=== PATIENT | female | born 1965 | race Caucasian/White ===

== ENCOUNTER 2020-05-04 14:14 | Outpatient (CLI) | payer OTHER, SELFPAY ==
--- NOTE | ~2020-05-04 | MR_ITS ---
EXAMINATION: MR cervical spine wo con DATE: 05/04/2020 15:16 INDICATION: Cervical disc disorder, unspecified. Neck pain. TECHNIQUE: Magnetic resonance imaging (MRI) of the cervical spine was performed without intravenous c ontrast. Sequences included sagittal T2-weighted FSE, sagittal STIR FSE, sagittal T1-weighted FSE, ax ial MERGE, and axial T2-weighted FSE. COMPARISON: None FINDINGS: There is 5 degrees levocurvature of cervical spine. Vertebral body heights are normal. Ther e are changes of anterior fusion procedure from C5 to C7 with discectomies, interbody bone graft, and anterior plate and screws. There is moderately decreased disc height at C4-C5. The spinal cord signa l intensity is normal. The following disc levels are specifically discussed: C2-C3: The disc does not extend beyond the endplate margin. There is no uncovertebral joint osteoarth ritis. There is mild left facet joint osteoarthritis. There is no neural foraminal stenosis. There is no central canal stenosis. C3-C4: There is a central protrusion. There is mild bilateral uncovertebral joint osteoarthritis. The re is no facet joint osteoarthritis. There is mild bilateral neural foraminal stenosis. There is no c entral canal stenosis. C4-C5: The disc is bulging. There is mild bilateral uncovertebral joint osteoarthritis. There is mild bilateral facet joint osteoarthritis. There is mild bilateral neural foraminal stenosis. There is mi ld central canal stenosis. C5-C6: There is no uncovertebral joint hypertrophy. There is no facet joint hypertrophy. There is no neural foraminal stenosis. There is no central canal stenosis. C6-C7: There is no uncovertebral joint hypertrophy. There is no facet joint hypertrophy. There is no neural foraminal stenosis. There is no central canal stenosis. C7-T1: The disc does not extend beyond the endplate margin. There is no uncovertebral joint osteoarth ritis. There is severe right and mild left facet joint osteoarthritis. There is mild right neural for aminal stenosis. There is no central canal stenosis. IMPRESSION: 1. Mild cervical spondylosis. 2. Anterior fusion procedure from C5 to C7. Reviewed, dictated and finalized at location A.
== END 2020-05-04 14:15 | disposition home or self-care (01) ==
PROVIDERS: PCP Family Medicine; Visit Provider Family Medicine
DX: M50.90 Cervical disc disorder, unspecified, unspecified cervical region (principal); M47.892 Other spondylosis, cervical region; Z98.0 Intestinal bypass and anastomosis status
CPT/HCPCS: 72141

== ENCOUNTER 2020-09-02 08:13 | Outpatient (NON) | payer OTHER, SELFPAY ==
[2020-09-02 17:37] LABS: SARS-CoV-2 RNA PCR Negative
== END 2020-09-02 08:14 ==
PROVIDERS: PCP Family Medicine; Visit Provider Family Medicine
DX: R68.89 Other general symptoms and signs (principal); Z20.828 Contact with and (suspected) exposure to other viral communicable diseases
CPT/HCPCS: 87635; C9803; U0003

== ENCOUNTER 2023-01-27 15:43 | Outpatient (CLI) | payer OTHER, SELFPAY ==
--- NOTE | ~2023-01-27 | CT_ITS ---
EXAMINATION: CT sinus wo con DATE: 01/27/2023 15:59 INDICATION: Chronic sinusitis. TECHNIQUE: Computed tomography (CT) of the paranasal sinuses was performed without intravenous contra st. Iterative reconstruction technique was employed. The dose-length product was 297.72 mGy-cm. COMPARISON: None FINDINGS: There is extensive mucosal thickening in right frontal sinus and mild mucosal thickening in left frontal sinus. There is extensive mucosal thickening in the bilateral anterior and posterior et hmoid sinuses and sphenoid sinuses. There is mild mucosal thickening in the maxillary sinuses. There are changes of bilateral uncinectomies and ethmoidectomies. The nasal septum is at midline. The ostio meatal units are patent. There are multiple carious lesions in the teeth. IMPRESSION: 1. Mucosal thickening in the paranasal sinuses. 2. Dental disease. Reviewed, dictated and finalized at location A.
== END 2023-01-27 15:44 | disposition home or self-care (01) ==
PROVIDERS: PCP Family Medicine; Visit Provider Family Medicine
DX: J32.1 Chronic frontal sinusitis (principal); K08.9 Disorder of teeth and supporting structures, unspecified
CPT/HCPCS: 70486

== ENCOUNTER 2023-02-12 13:38 | Outpatient (CLI) | payer OTHER, SELFPAY ==
--- NOTE | ~2023-02-12 | CT_ITS ---
EXAMINATION:CT diagnostic chest wo con DATE: 02/12/2023 13:56 INDICATION: Lung fibrosis. Chronic obstructive pulmonary disease. TECHNIQUE: Computed tomography (CT) of the chest was performed without intravenous contrast. Automate d exposure control and iterative reconstruction technique were employed. The dose-length product (DLP ) was 334.63 mGy-cm. COMPARISON: Chest CT 03/16/2014 FINDINGS: There is mild emphysema. There are airspace opacities with volume loss and air bronchograms in lateral segment right middle lobe. There is mild bronchiectasis in right middle lobe. There is mi ld atelectasis in lingula. There are mild groundglass opacities in the lungs with an inferior predomi nance. No honeycombing. No pleural effusion. The heart size is normal. No pericardial effusion. There are changes of anterior fusion procedure in cervical spine. IMPRESSION: 1. Mild emphysema and mild chronic lung disease. Reviewed, dictated and finalized at location A.
--- NOTE | 2023-02-16 11:38 | WPDSIXMINUTE ---
Six Minute Walk Procedure Procedure Performed Pulmonary Stress Test (6 min walk) Six Minute Walk Six Minute Walk: This is a 6 minute walk test. The test was performed and interpreted in accordance with the 2014 ERS/ATS task force guidelines. Findings: The patient's resting room air oxygen saturation measured by pulse oximetry was 94% and heart rate was 95 bpm. Patient ambulated for 305 meters and oxygen saturation remained 90 to 96%. Heart rate at the end of the study was 113 bpm. The patient did not qualify for supplemental oxygen at rest or with ambulation. There are no prior studies for comparison.
--- NOTE | 2023-02-16 11:40 | WPDPFTINT ---
PFT Procedure Performed PFT Procedure Performed Spirometry with Pre/Post Bronchodilator Plethysmography (Lung Vol) Diffusing Cap (DLCO) Flow Vol Loop PFT Interpretation This is a pulmonary function test with pre and post-bronchodilator spirometry, plethysmography and diffusing capacity. The test was performed and results interpreted in accordance with the 2019 and 2005 ATS/ERS Task Force guidelines respectively using the Global Lung Function Initiative-2012 reference equations. Patient demonstrated good effort and cooperation. Reproducibility criteria were met. The quality of the pre bronchodilator spirometry maneuver was Grade A and post bronchodilator spirometry maneuver was Grade A. Findings: Spirometry: The contour the inspiratory and expiratory flow tracing are normal. The pre bronchodilator FVC is 2.56 L, 90% predicted. The pre bronchodilator FEV1 is 2.09 L, 93% predicted. The pre bronchodilator FEV1: FVC ratio is 81%. The post bronchodilator FVC is 2.64 L, representing a 3% increase. The post bronchodilator FEV1 is 2.07, representing 1% decrease. The post bronchodilator FEV1: FVC ratio 78%. Plethysmography: The total lung capacity is 4.15 L, 90% predicted. The functional residual capacity is 1.92 L, 74% predicted. The residual volume is 1.58 L, 86% predicted. Diffusing capacity: The diffusing capacity unadjusted for hemoglobin and carboxyhemoglobin is 10.2, 50% predicted. The diffusing capacity adjusted for alveolar volume is 2.71, 59% predicted. Impression: The spirometry is normal without evidence of an obstructive abnormality. There is no significant improvement after inhaling a single dose of albuterol. The lung volumes are normal. The diffusing capacity unadjusted for hemoglobin and carboxyhemoglobin is moderately decreased and remains moderately decreased when adjusted for alveolar volume. There are no prior studies for comparison
== END 2023-02-12 13:39 | disposition home or self-care (01) ==
PROVIDERS: PCP Family Medicine; Visit Provider Physician Assistant
DX: J44.9 Chronic obstructive pulmonary disease, unspecified (principal); R94.2 Abnormal results of pulmonary function studies
CPT/HCPCS: 71250; 94060; 94618; 94726; 94729

== ENCOUNTER 2023-02-20 08:09 | Outpatient (CLI) | payer OTHER, SELFPAY ==
--- NOTE | 2023-03-17 10:20 | WPDSLEEPSTUD ---
Sleep Study Date of Study: 02/20/23 Ordering Provider: NATHANIEL Gill Interpreting Physician: Dayana Solis MD Sleep Study Type: Polysomnogram Height: 1.55 m Weight: 87.997 kg Body Mass Index: 36.6 Neck Circumference (inches): 15 Thompson: 4 Reason for Sleep Study Hypersomnia Sleep History Allison Juarez is a 58-year-old woman who was recently in the hospital at [facility] with abnormal breathing at night with desaturation below 50%. She was recommended to have a sleep study. She rarely awakens from sleep feeling short of breath. She does not awaken at night with heartburn, belching or coughing, occasionally snores but never loudly enough that others complain about it. She does not have trouble sleeping with a cold. She rarely wakes up gasping for breath at night. She does not have breathing problems at night observed by others. She does not sweat excessively at night or notice her heart pounding or beating irregularly at night. She rarely falls asleep during the day, never ill involuntarily or while driving. She does not have loss of muscle tone with strong emotion. She does not have daytime difficulties due to excessive sleepiness. She does not feel paralyzed on waking or falling asleep. She does not have vivid dreamlike scenes upon awakening or falling asleep. She is not afraid to go to sleep. She does not have nightmares. She rarely remembers her dreams. She does not have racing thoughts. She occasionally feels sad or depressed. She frequently has anxiety. She does not have muscular tension. She rarely notices parts of her body jerking. She does not kick at night. She does not have crawling or aching feelings in her legs or any kind of leg pain at night. She does not have morning jaw pain. She does not grind her teeth during sleep. She frequently is bothered by pain during the day. She is not awakened by pain at night. She occasionally wakes up feeling stiff in the morning. She does not wake up with sore achy muscles. She rarely wakes up with pain in the neck and spine. She has episodes of panic. Normal bedtime is 8:30 p.m. falling asleep within a 1/2 hour. She does not wake during the night frequently but when she does it is to go urinate. She wakes the morning at 7:00 a.m.. Weekend schedule is the same. She estimates getting 8 hours of sleep at night. She denies taking naps in the afternoon or evening. She feels better in the morning compared to other times of day. Habits: Tobacco 1 pack per day. Caffeine 2 cups a day. No alcohol or recreational substances. [facility] Past Medical History Medical History Adult BMI 36.0-36.9 kg/sq m Arthritis Bipolar 1 disorder BMI 32.0-32.9,adult BMI 33.0-33.9,adult BMI 34.0-34.9,adult BMI 35.0-35.9,adult BMI over 35 Cervical cancer Chest pain Depression Diverticulitis History of pneumonia Irritable bowel syndrome with both constipation and diarrhea Kidney stones Mixed hyperlipidemia Other emphysema Other intervertebral disc degeneration, lumbosacral region Picking own skin Posterior subcapsular polar age-related cataract, bilateral PTSD (post-traumatic stress disorder) Screening mammogram for high-risk patient Smoking addiction Spondylosis without myelopathy or radiculopathy, cervical region Subconjunctival hemorrhage Tobacco abuse Uterine cyst Vaginal candidiasis Vitamin B12 deficiency Vitamin D deficiency Surgical History Surgical History History of bladder suspension procedure History of History of hysterectomy History of spinal surgery Family History Family History Mother Family history of premature coronary heart disease Family history of bipolar disorder Family history of malignant neoplasm of uterus Sibling Family history of schizophrenia Famil
[2023-03-17 10:26] VITALS: BMI 36.6
== END 2023-02-21 07:05 | disposition home or self-care (01) ==
LOC: ANHCSM 08:10
PROVIDERS: PCP Family Medicine; Visit Provider Physician Assistant
DX: G47.34 Idiopathic sleep related nonobstructive alveolar hypoventilation (principal); R06.83 Snoring; G47.10 Hypersomnia, unspecified; Z85.41 Personal history of malignant neoplasm of cervix uteri; E78.2 Mixed hyperlipidemia; F17.210 Nicotine dependence, cigarettes, uncomplicated
CPT/HCPCS: 95810

== ENCOUNTER 2023-10-08 02:42 | Day surgery (SDC) | payer OTHER, SELFPAY ==
[2023-09-25 10:51] VITALS: BMI 37.6
--- NOTE | 2023-10-06 08:38 | SUR.PREOP ---
Patient called regarding upcoming procedure. Reviewed preop instructions, appointment times, and procedure prep.
--- NOTE | 2023-10-07 10:54 | PM.HPGS ---
History of Present Illness History of Present Illness Consent: Risks, benefits, and alternatives have been discussed and questions answered. Patient agrees to proceed with procedure. Chief complaint: nausea with vomiting Narrative: Allison Juarez is a 58 year old female who is here for evaluation of nausea and vomiting for past 6 weeks.? states nausea/vomiting occurs in the a.m. only.? Reports vomiting yellow bile, she denies any hematemesis or food particles.? she reports associated intermittent diarrhea but this has resolved. When symptoms 1st started she was placed on Pepcid daily which helped but she discontinued it as she was taking too many medications.? Last year she was hospitalized with diverticulitis. CT scan also showed thickening of the gastric antrum and pylorus at that time. Review of Systems Review of Systems: All systems reviewed & are unremarkable except as noted in HPI and below PMFSH Past Medical History Medical History Adult BMI 36.0-36.9 kg/sq m Arthritis Bipolar 1 disorder BMI 32.0-32.9,adult BMI 33.0-33.9,adult BMI 34.0-34.9,adult BMI 35.0-35.9,adult BMI over 35 Cervical cancer Chest pain Depression Diverticulitis History of pneumonia Irritable bowel syndrome with both constipation and diarrhea Kidney stones Migraine Mixed hyperlipidemia Other emphysema Other intervertebral disc degeneration, lumbosacral region Picking own skin Posterior subcapsular polar age-related cataract, bilateral PTSD (post-traumatic stress disorder) Screening mammogram for high-risk patient Smoking addiction Spondylosis without myelopathy or radiculopathy, cervical region Subconjunctival hemorrhage Tobacco abuse Uterine cyst Vaginal candidiasis Vitamin B12 deficiency Vitamin D deficiency Surgical History Surgical History History of bladder suspension procedure History of History of hysterectomy History of spinal surgery Family History Family History Mother Family history of premature coronary heart disease Family history of bipolar disorder Family history of malignant neoplasm of uterus Sibling Family history of schizophrenia Family history of diabetes mellitus in first degree relative Father No problems noted. Social History Social History Smoking status: Light tobacco smoker Tobacco type: cigarettes Second hand tobacco smoke exposure: Yes Smoking end date: 08/04/23 Alcohol intake: never Substance use: current Substance use type: prescription drug Other substance usage details: 10mg hydrocodone/325 acetaminophen for pain Living arrangements: alone Occupation/Education: retired Gender identity (if verbalized by the patient): Female Spiritual care concerns: No Meds Home Medications and Allergies Home Medications Medication Instructions Recorded Confirmed Type fluoxetine 20 mg capsule 20 mg PO DAILY #90 caps 07/27/20 10/08/23 Rx mupirocin 2 % topical ointment 1 applic topical BID #22 grams 02/22/22 10/08/23 Rx olanzapine 5 mg tablet 7.5 mg PO DAILY 09/17/22 10/08/23 History rosuvastatin 20 mg tablet (Crestor) 20 mg PO DAILY #90 tabs 01/03/23 10/08/23 Rx amlodipine 5 mg tablet 5 mg PO DAILY 01/14/23 10/08/23 History lisinopril 10 mg tablet 10 mg PO DAILY 01/14/23 10/08/23 History albuterol sulfate 90 mcg/actuation 2 inh inhalation Q6H PRN shortness 01/31/23 10/08/23 Rx aerosol inhaler of breath or wheezing #8.5 grams ondansetron HCl 4 mg tablet 4 mg PO Q8H PRN nausea and 08/20/23 10/08/23 Rx vomiting #10 tabs sumatriptan succinate 25 mg tablet See Rx Instructions PO .COMPLEX #9 08/20/23 10/08/23 Rx (Imitrex) tabs famotidine 40 mg tablet 40 mg PO DAILY #30 tabs 08/24/23 10/08/23 Rx trazodone 50 mg tablet 100 mg PO .qhs #60 t
[2023-10-08 09:10] VITALS: BP 133/84; PULSE 73; RESP 16; TEMP 36.3; O2SAT 97
[2023-10-08] MEDS: LACTATED RINGERS 1,000 ML 150 ML IV CONT (09:11)
--- NOTE | 2023-10-08 09:32 | WPDANESEPPF ---
Anes - Initial Pre Proc Eval Procedure: Operation Date: 10/08/23 10:30 Proposed Procedures p Esophagogastroduodenoscopy - Miguel Umaña MD Date/Time: 10/08/23 09:32 Surgeon: Miguel Umaña MD Pre Op Diagnosis: nausea with vomiting Patient Data Age: 58 Gender: F Height: 1.55 m Weight: 90 kg Last Vital Signs Temp 36.3 C L 10/08/23 09:10 Pulse 73 10/08/23 09:10 Resp 16 10/08/23 09:10 BP 133/84 10/08/23 09:10 Pulse Ox 97 10/08/23 09:10 O2 Del Method Room Air 10/08/23 09:10 Allergies Allergy/AdvReac Type Severity Reaction Status Date / Time cefuroxime Allergy Severe Flushing Verified 10/08/23 09:08 amoxicillin Allergy Intermediate Nausea and Verified 10/08/23 09:08 Vomiting carisoprodol Allergy Unknown THROAT Verified 10/08/23 09:08 SWELLING aspirin AdvReac Unknown GI UPSET Verified 10/08/23 09:08 ibuprofen AdvReac Unknown STOMACH Verified 10/08/23 09:08 IRRITATION Home Medications Medication Instructions Recorded Confirmed Type fluoxetine 20 mg capsule 20 mg PO DAILY #90 caps 07/27/20 10/08/23 Rx mupirocin 2 % topical ointment 1 applic topical BID #22 grams 02/22/22 10/08/23 Rx olanzapine 5 mg tablet 7.5 mg PO DAILY 09/17/22 10/08/23 History rosuvastatin 20 mg tablet (Crestor) 20 mg PO DAILY #90 tabs 01/03/23 10/08/23 Rx amlodipine 5 mg tablet 5 mg PO DAILY 01/14/23 10/08/23 History lisinopril 10 mg tablet 10 mg PO DAILY 01/14/23 10/08/23 History albuterol sulfate 90 mcg/actuation 2 inh inhalation Q6H PRN shortness 01/31/23 10/08/23 Rx aerosol inhaler of breath or wheezing #8.5 grams ondansetron HCl 4 mg tablet 4 mg PO Q8H PRN nausea and 08/20/23 10/08/23 Rx vomiting #10 tabs sumatriptan succinate 25 mg tablet See Rx Instructions PO .COMPLEX #9 08/20/23 10/08/23 Rx (Imitrex) tabs famotidine 40 mg tablet 40 mg PO DAILY #30 tabs 08/24/23 10/08/23 Rx trazodone 50 mg tablet 100 mg PO .qhs #60 tabs 08/24/23 10/08/23 Rx hydrocodone 5 mg-acetaminophen 325 2 tablet PO Q12H PRN pain #120 tabs 09/26/23 10/08/23 Rx mg tablet Patient hx anesthesia problems: none Family hx anesthesia problems: none Results Review: All pre-operative results and documents have been reviewed as part of the pre-operative evaluation. [facility] Past Medical History Medical History Adult BMI 36.0-36.9 kg/sq m Arthritis Bipolar 1 disorder BMI 32.0-32.9,adult BMI 33.0-33.9,adult BMI 34.0-34.9,adult BMI 35.0-35.9,adult BMI over 35 Cervical cancer Chest pain Depression Diverticulitis History of pneumonia Irritable bowel syndrome with both constipation and diarrhea Kidney stones Migraine Mixed hyperlipidemia Other emphysema Other intervertebral disc degeneration, lumbosacral region Picking own skin Posterior subcapsular polar age-related cataract, bilateral PTSD (post-traumatic stress disorder) Screening mammogram for high-risk patient Smoking addiction Spondylosis without myelopathy or radiculopathy, cervical region Subconjunctival hemorrhage Tobacco abuse Uterine cyst Vaginal candidiasis Vitamin B12 deficiency Vitamin D deficiency Surgical History Surgical History History of bladder suspension procedure History of History of hysterectomy History of spinal surgery Family History Family History Mother Family history of premature coronary heart disease Family history of bipolar disorder Family history of malignant neoplasm of uterus Sibling Family history of schizophrenia Family history of diabetes mellitus in first degree relative Father No problems noted. Social History Social History (Updated 09/02/23 @ 10:26 by KAL Chau) Smoking status: Light tobacco smoker Tobacco type: cigarettes Second hand tobacco smoke exposure: Yes Smoking end date: 0
[2023-10-08 10:33] VITALS: BP 126/65; PULSE 68; RESP 22; O2SAT 97
[2023-10-08 10:43] VITALS: BP 138/90; PULSE 71; RESP 18; O2SAT 98
[2023-10-08 10:59] VITALS: BP 136/87; PULSE 62; RESP 20; O2SAT 100
== END 2023-10-08 11:01 | disposition home or self-care (01) ==
PROVIDERS: PCP Family Medicine; Visit Provider Internal Medicine Gastroenterology
PROC: 0DJ08ZZ Inspection of Upper Intestinal Tract, Via Natural or Artificial Opening Endoscopic (ICD-10-PCS; CPT 43235; principal; 2023-10-08 10:30)
DX: K21.9 Gastro-esophageal reflux disease without esophagitis (principal); K29.80 Duodenitis without bleeding; F31.9 Bipolar disorder, unspecified; G43.909 Migraine, unspecified, not intractable, without status migrainosus; E78.2 Mixed hyperlipidemia; F42.4 Excoriation (skin-picking) disorder; E66.9 Obesity, unspecified; Z68.37 Body mass index [BMI] 37.0-37.9, adult; F17.210 Nicotine dependence, cigarettes, uncomplicated; Z79.51 Long term (current) use of inhaled steroids; Z79.891 Long term (current) use of opiate analgesic
CPT/HCPCS: 43239; 87081; 88305; J2704; J7120

== ENCOUNTER 2023-12-15 11:09 | Outpatient (CLI) | payer OTHER, SELFPAY ==
[2023-12-15 12:04] LABS: Hemoglobin A1C 5.9 % (<5.7)
== END 2023-12-15 11:10 | disposition home or self-care (01) ==
PROVIDERS: PCP Family Medicine; Visit Provider Nurse Practitioner Family
DX: R73.01 Impaired fasting glucose (principal)
CPT/HCPCS: 36415; 83036